=== PATIENT | male | born 1970 | race Caucasian/White ===

== ENCOUNTER 2018-11-03 08:59 | Emergency (ER) | payer OTHER, BC ==
[2018-11-03 09:09] VITALS: BP 137/88; PULSE 67; TEMP 98.1; BMI 26.4
[2018-11-03] MEDS ORDERED: KETOROLAC TROMETHAMINE 60 MG/2 ML VIAL IM ONE (09:50)
--- NOTE | 2018-11-03 09:50 | PDOC ---
History of Present Illness - General Chief Complaint: Pain Stated Complaint: RT KNEE INJURY Time Seen by Provider: 11/03/18 09:21 - History of Present Illness Initial Comments: 11/03/18 09:47 CHIEF COMPLAINT: knee pain HISTORY OF PRESENT ILLNESS: 48 yo M with no PMH presents to [facility] s/p injury yesterday. 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 I thought it was ok but when I woke up this morning I couldn't bend it because it hurts." He states he is fully ambulatory "as long as the knee is straight." No recent travel or sick contacts. PAST MEDICAL HISTORY: Denies past medical history FAMILY HISTORY: Denies SOCIAL HISTORY:Denies tobacco, alcohol, illicit drug use. SURGICAL HISTORY: Denies ALLERGIES: No known drug allergies REVIEW OF SYSTEMS General/Constitutional: Denies fever or chills. Denies weakness, weight change. HEENT: Denies change in vision. Denies ear pain or discharge. Denies sore throat. Cardiovascular: Denies chest pain or shortness of breath. Respiratory: Denies cough, wheezing, or hemoptysis. Gastrointestinal: Denies nausea, vomiting, diarrhea or constipation. Denies rectal bleeding. Genitourinary: Denies dysuria, frequency, or change in urination. Musculoskeletal: R knee pain. Denies neck or back pain. Skin and breasts: Denies rash or easy bruising. Neurologic: Denies headache, vertigo, loss of consciousness, or loss of sensation. PHYSICAL EXAM General Appearance: Well-appearing, appropriately dressed. No apparent distress , no intoxication. HEENT: EOMI, PERRLA, normal ENT inspection, normal voice, TMs normal, pharynx normal. No conjunctival pallor. No photophobia, scleral icterus. Neck: Supple. Trachea midline. No tenderness, rigidity, carotid bruit, stridor , lymphadenopathy, or thyromegaly. Respiratory/Chest: Lungs CTAB. No shortness of breath, chest tenderness, respiratory distress, accessory muscle use. No crackles, rales, rhonchi, stridor , wheezing, dullness Cardiovascular: RRR. S1, S2. No JVD, murmur, bradycardia, tachycardia. Vascular Pulses: Dorsalis-Pedis (R): 2+, Dorsalis-Pedis (L): 2+ Gastrointestinal/Abdominal: Normal bowel sounds. Abdomen soft, non-distended. No tenderness or rebound tenderness. No organomegaly, pulsatile mass, guarding , hernia, hepatomegaly, splenomegaly. Musculoskeletal/Extremities: Weight-bearing. Decreased flexion of R knee secondary to pain. Negative varus/valgus tests. Normal inspection. FROM of all other extremities, normal capillary refill. Pelvis Stable. No CVA tenderness. No tenderness to extremities, pedal edema, swelling, erythema or deformity. Integumentary: Appropriate color, dry, warm. No cyanosis, erythema, jaundice or rash Neurologic: hydrometer calibrator II-XII intact. Fully oriented, alert. Appropriate mood/affect. Motor strength 5/5. No appreciable EOM palsy, facial droop or sensory deficit. Past History - Past Medical History Allergies/Adverse Reactions: Allergies Allergy/AdvReac Type Severity Reaction Status Date / Time No Known Allergies Allergy Verified 11/03/18 09:09 Home Medications: Ambulatory Orders Amlodipine Besylate [Norvasc -] 5 mg PO DAILY #0 tablet 02/03/15 Metronidazole [Flagyl] 500 mg PO TID #28 tablet 02/03/15 Nicotine Patch [Nicoderm Patch -] 21 mg TD DAILY #0 patch 02/03/15 Pantoprazole Sodium [Protonix IV] 40 mg PO DAILY #0 vial 02/03/15 levoFLOXacin 500 MG IVPB [Levaquin 500 mg Premixed Ivpb -] 500 mg PO DAILY #0 bag 02/03/15 Diclofenac Sodium 75 mg PO BID #20 tablet. 11/03/18 COPD: No GI Disorders: Yes (DIVERTICULOSIS) - Surgical History Abdominal Surgery: Yes (COLON RESECTION, HERNIA) - Suicide/Smoking/Psychosocial Hx Smoking History: Never smoked Have you smoked in the past 12 months: Yes Number of Cigarettes Smoked Daily: 1 Information on smoking cessation initiated: No 'Breaking Loose' booklet given: 07/18/14 Hx Alcohol Use: No Drug/Substance Use Hx: No Substance Use Type: None *Physical Exam - Vital Signs Last Vital Signs Temp Pulse Resp BP Pulse Ox 98.1 F 67 19 137/88 100 11/03/18 09:07 11/03/18 09:07 11/03/18 09:07 11/03/18 09:07 11/03/18 09:07 ED Treatment Course - RADIOLOGY Radiology Studies Ordered: Category Date Time Status KNEE 3 POS-RIGHT [RAD] Stat Radiology 11/03/18 09:43 Ordered Medical Decision Making - Medical Decision Making 11/03/18 09:49 48 yo M with no PMH presents to [facility] track with knee pain s/p injury yesterday. -toradol IM 11/03/18 10:35 -knee immobilizer f/u with ortho *DC/Admit/Observation/Transfer Diagnosis at time of Disposition: Knee pain, right Qualifiers: Chronicity: acute Qualified Code(s): M25.561 - Pain in right knee - Discharge Dispostion Disposition: HOME Condition at time of disposition: Stable Decision to Admit order: No - Prescriptions Prescriptions: Diclofenac Sodium 75 mg PO BID #20 tablet.dr - Referrals Referrals: Dilip Watson MD [Primary Care Provider] - Florin Hernandez MD [Staff Physician] - Gregg Kaminski DO [Staff Physician] - - Patient Instructions Printed Discharge Instructions: DI for Knee Pain - Post Discharge Activity Forms/Work/School Notes: Back to Work
[2018-11-03] MEDS ORDERED: KETOROLAC TROMETHAMINE 60 MG/2 ML VIAL ONE (09:55)
== END 2018-11-03 10:51 | disposition home or self-care (01) ==
LOC: JERFT 08:59
PROC: 3E0233Z Introduction of Anti-inflammatory into Muscle, Percutaneous Approach (ICD-10-PCS; principal; 2018-11-03)
PROC: 2W3QXYZ Immobilization of Right Lower Leg using Other Device (ICD-10-PCS; 2018-11-03)
DX: S89.81XA Other specified injuries of right lower leg, initial encounter (principal); M25.561 Pain in right knee; W17.89XA Other fall from one level to another, initial encounter; Y93.H2 Activity, gardening and landscaping; Y92.89 Other specified places as the place of occurrence of the external cause; Y99.0 Civilian activity done for income or pay
CPT/HCPCS: 73562-TC-RT-FY; 99282-25

== ENCOUNTER 2020-01-25 10:28 | Emergency (ER) | payer BC ==
[2020-01-25 10:32] VITALS: BP 106/68; PULSE 81; TEMP 96.4; BMI 26.7
[2020-01-25] MEDS ORDERED: LIDOCAINE HCL 1%, 10 MG/ML (50 mL VIAL) SQ ONE (10:46)
[2020-01-25] MEDS ORDERED: LIDOCAINE HCL 1%, 10 MG/ML (20ML VIAL) ONE (10:47)
== END 2020-01-25 11:11 | disposition home or self-care (01) ==
LOC: JERFT 10:28
DX: S09.90XA Unspecified injury of head, initial encounter (principal); S01.01XA Laceration without foreign body of scalp, initial encounter
CPT/HCPCS: 99284-25

== ENCOUNTER 2023-05-28 10:18 | Emergency (ER) | payer OTHER, BC ==
[2023-05-28 10:23] VITALS: BP 129/86; PULSE 63; RESP 18; TEMP 97.9; BMI 25.7
[2023-05-28] MEDS ORDERED: KETOROLAC TROMETHAMINE 30 MG/1 ML VIAL ONE (11:07)
[2023-05-28] MEDS: KETOROLAC TROMETHAMINE 30 MG/1 ML VIAL IM ONE (11:12)
== END 2023-05-28 12:08 | disposition home or self-care (01) ==
LOC: JERFT 10:18
PROC: 3E0233Z Introduction of Anti-inflammatory into Muscle, Percutaneous Approach (ICD-10-PCS; principal; 2023-05-28)
DX: M79.672 Pain in left foot (principal); M76.61 Achilles tendinitis, right leg; Y99.0 Civilian activity done for income or pay
CPT/HCPCS: 73610-TC-RT-FY; 99284-25